=== PATIENT | male | born 1985 | race Caucasian/White ===

== ENCOUNTER 2017-12-25 21:50 | Emergency (ER) | payer OTHER ==
[2017-12-25 22:29] VITALS: BP 136/73; PULSE 60; RESP 16; TEMP 99.1; O2SAT 97
[2017-12-25] MEDS ORDERED: Tdap Vaccine 0.5 ml Vial (10-64 yrs) IM ONE ×2 (22:42→22:50)
--- NOTE | 2017-12-25 22:42 | ED PDOC ---
HPI: Wound Care - HPI Time Seen by Provider: 12/25/17 22:32 Chief Complaint (Nursing): Abnormal Skin Integrity Chief Complaint (Provider): finger laceration History Per: Patient Additional Complaint(s): 32 year old right hand dominant male presents with superficial laceration to left index finger sustained when he was slices vegetables and accidentally cut his finger about 1 hour prior to arrival. Patient is not sure of last tetanus. He denies any acute pain. PMD: none Past Medical History Reviewed: Historical Data, Nursing Documentation, Vital Signs Vital Signs: Last Vital Signs Temp 99.1 F 12/25/17 22:27 Pulse 60 12/25/17 22:27 Resp 16 12/25/17 22:27 BP 136/73 12/25/17 22:27 Pulse Ox 97 12/25/17 22:27 - Medical History PMH: No Chronic Diseases - Surgical History Surgical History: No Surg Hx - Family History Family History: States: No Known Family Hx - Living Arrangements Living Arrangements: With Friends/Others - Social History Current smoker - smoking cessation education provided: No Alcohol: Social Drugs: Denies - Immunization History Hx Tetanus Toxoid Vaccination: No (not sure of last booster) - Allergies Allergies/Adverse Reactions: Allergies Allergy/AdvReac Type Severity Reaction Status Date / Time Penicillins Allergy RASH Verified 12/25/17 22:29 Review of Systems ROS Statement: Except As Marked, All Systems Reviewed And Found Negative Musculoskeletal: Positive for: Other (left index finger laceration) Physical Exam - Reviewed Nursing Documentation Reviewed: Yes Vital Signs Reviewed: Yes - Physical Exam Appears: Positive for: Well, Non-toxic, No Acute Distress Skin: Positive for: Normal Color. Negative for: Rash Eye Exam: Positive for: Normal appearance Extremity: Positive for: Other (0.5 cm superficial laceration noted to distal left index finger, minimal active bleeding, fingernail intact, N/V intact) Neurologic/Psych: Positive for: Alert, Oriented - ECG O2 Sat by Pulse Oximetry: 97 Pulse Ox Interpretation: Normal Medical Decision Making Medical Decision Makin32 year old with finger laceration Plan: Adacel IM Pain meds declined Wound is very superficial, no sutures indicated. Wound was cleansed with saline and betadine, bacitracin and bandage applied. Patient was given wound care instructions. Disposition - Clinical Impression Clinical Impression: Finger laceration, Requires a booster tetanus - Patient ED Disposition Is Patient to be Admitted: No Counseled Patient/Family Regarding: Need For Followup - Disposition Referrals: [facility] [Outside] Disposition: Routine/Home Disposition Time: 22:59 Condition: STABLE Additional Instructions: Keep bandage in placed for 2 days, after 2 days remove bandage and wound will continue to heal. Wash daily with soap and water and apply neosoporin 1-2 times per day. Advil or tylenol as needed for pain. Follow up with primary care doctor or clinic as needed. Instructions: Common Finger Injuries (DC), Diphtheria and Tetanus Toxoids, and Acellular Pertussis Vaccine Forms: [facility] ([place])
== END 2017-12-25 23:25 | disposition home or self-care (01) ==
LOC: H.ER 21:50
DX: S61.211A Laceration without foreign body of left index finger without damage to nail, initial encounter (principal); W26.0XXA Contact with knife, initial encounter; Y92.89 Other specified places as the place of occurrence of the external cause; Z88.0 Allergy status to penicillin